=== PATIENT | male | born 1935 | race Caucasian/White ===

== ENCOUNTER 2018-10-29 15:39 | Inpatient (IN) | payer MEDICARE, OTHER ==
[2018-10-29 16:18] VITALS: BMI 24.0
[2018-10-29] MEDS: Famotidine 20 MG TAB PO SCH (20:50)
[2018-10-29] MEDS: Carvedilol 3.125 MG TAB PO SCH (20:50)
[2018-10-29] MEDS: traMADol HCl 50 MG TAB PO PRN (20:53)
[2018-10-30 05:56] LABS: ALT (SGPT) 13 U/L (8-55); AST (SGOT) 20 U/L (5-34); Alkaline Phosphatase 92 U/L (40-150); Anion Gap 13 mmol/L (10-20); BUN (Urea Nitrogen) 33 mg/dL (8.4-25.7); Bilirubin, Total 1.1 mg/dL (0.2-1.2); Calc. Creatinine Clearance 44 mL/min (70-130); Calcium 8.9 mg/dL (7.8-10.44); Carbon Dioxide 27 mmol/L (23-31); Chloride 101 mmol/L (98-107); Estimated GFR-MDRD 42; Globulin 4.6 g/dL (2.4-3.5); Glucose 86 mg/dL (83-110); Potassium 4.6 mmol/L (3.5-5.1); Protein, Total 7.6 g/dL (5.8-8.1); Sodium 136 mmol/L (136-145)
[2018-10-30 06:01] LABS: Band 6 % (5-11); Hemoglobin 8.4 g/dL (14.0-18.0); Lymphocytes 39 % (21-51); MDiff Complete? YES; Mean Corpuscular HGB CONC 32.1 g/dL (32.0-36.0); Mean Corpuscular Hemoglobin 26.3 pg (27.0-31.0); Mean Platelet Volume 7.8 fL (7.4-10.4); Monocytes 6 % (0-10); Neutrophil 49 % (42-75); Platelet Count 99 thou/uL (130-400); Platelet Morphology Comment Appears Decreased; RBC Morphology Normal; Red Blood Cell (RBC) Count 3.18 mill/uL (4.70-6.10); White Blood Cell (WBC) Count 4.5 thou/uL (4.8-10.8)
[2018-10-30] MEDS: Furosemide 20 MG TAB PO SCH (08:02)
[2018-10-30] MEDS: Lisinopril 5 MG TAB PO SCH (08:02)
[2018-10-30] MEDS: Carvedilol 3.125 MG TAB PO SCH ×2 (08:03→20:31)
[2018-10-30] MEDS ORDERED: Enoxaparin Sodium 40 MG/0.4 ML SYRINGE SC SCH (09:00)
[2018-10-30] MEDS: Acetaminophen 325 MG TAB PO PRN ×2 (09:42→20:31)
[2018-10-30] MEDS: traMADol HCl 50 MG TAB PO PRN (09:42)
[2018-10-30] MEDS: Famotidine 20 MG TAB PO SCH (20:31)
--- NOTE | 2018-10-31 03:17 | HP ---
HISTORY OF PRESENT ILLNESS: The patient is an unfortunate 83-year-old white male with a long history of severe peripheral edema, deep venous insufficiency with recurrent ulcers in both legs, which has not responded to conservative treatment. He has been treated with oral antibiotics and wound care, but has had increasing pain, and has been wheelchair bound for the last year prior to this. He was therefore admitted to [facility] for wound care, was found to not have significant infection, but was wrapped and leg wounds appeared to be healing slowly poorly. He was admitted to [facility] for continued PT. PAST SURGICAL HISTORY: Remarkable for small bowel obstruction with surgery in February 2018, cholecystectomy, right hip replacement. PAST MEDICAL HISTORY: Positive for gout, depression, mild hearing loss, chronic kidney disease, stage 3. MEDICATIONS: At present include, 1. Carvedilol 3.125 twice daily. 2. Furosemide 20 nightly. 3. Lisinopril 2.5 mg daily. 4. Tramadol as needed for pain. ALLERGIES: HE IS ALLERGIC TO CIPROFLOXACIN, AZACTAM, BENADRYL, AND ZOSYN. SOCIAL HISTORY: He lives with his . He is a nonsmoker, nondrinker. He is a DNR. REVIEW OF SYSTEMS: HEENT: He denies any headaches, dizziness, change in vision or hearing, hoarseness, or dysphagia. PULMONARY: He denies cough, sputum production, pneumonia, asthma, or tuberculosis. CARDIOVASCULAR: He denies chest pain, orthopnea, paroxysmal nocturnal dyspnea, or edema. GASTROINTESTINAL: He denies nausea, vomiting, diarrhea, constipation, or abdominal pain. GENITOURINARY: He denies dysuria, hematuria, or nocturia. PHYSICAL EXAMINATION: GENERAL: The patient is an elderly white male, lying in bed, in no acute distress. Oriented x3 and cooperative. VITAL SIGNS: Showed him to have temperature 96.8, pulse 58, respirations 20, O2 sats 92% on room air, blood pressure 131/60. HEENT: Pupils are equal, round, and reactive to light and accommodation. Sclerae anicteric. Conjunctivae pale. Oral mucous membranes well hydrated. NECK: Supple. There are no nodes or masses. JVP is not elevated. LUNGS: Clear. CARDIAC: Showed regular rhythm. No gallops or murmurs. ABDOMEN: Soft and nontender with no masses or organomegaly. There is a large ventral hernia, easily reduced. SKIN: Extremities show 2+ edema with chronic ulcerations on both legs, measuring 6 x 10 cm, but are wrapped right now. Also has bilateral ulcers, decubitus to the buttock, stage III, minimal drainage. NEUROLOGIC: Cranial nerves 2 through 12 are intact. Deep tendon reflex 2+ and equal. Absent Babinski. LABORATORY DATA: White count 4500, hematocrit 26. Sodium is 136, potassium 4.6, chloride 101, bicarb 27, BUN 33, creatinine 1.57, albumin 3.0, globulin 4.6. ASSESSMENT: An elderly white male with a history of chronic peripheral edema and deep venous insufficiency, has been bedridden in chair, ridden for a year and has developed bilateral decubitus of the buttocks plus also deep venous insufficiency ulcers of both legs and been no ongoing infection, but he has been unable to ambulate and therefore admitted to [facility] for PT, OT and wound care. He will be monitored closely for signs of sepsis or infection. He will have a dietary consult, nutritional consult. He will have DVT and stress ulcer prophylaxis. He also will be treated for his hypertension with carvedilol, furosemide and lisinopril. He will have a BNP done to evaluate for any lighten congestive heart failure. Job ID: [id number]
[2018-10-31] MEDS: Lisinopril 5 MG TAB PO SCH (08:26)
[2018-10-31] MEDS: Furosemide 20 MG TAB PO SCH (08:26)
[2018-10-31] MEDS: Carvedilol 3.125 MG TAB PO SCH (08:30)
[2018-10-31] MEDS: traMADol HCl 50 MG TAB PO PRN (09:12)
--- NOTE | 2018-10-31 19:27 | PRG ---
DATE OF SERVICE: 10/31/2018 SUBJECTIVE: The patient feels well, lying in bed. Awaiting therapy. Has had his breakfast this morning. Slept well through the night. OBJECTIVE: VITAL SIGNS: Shows his pulse is 49, blood pressure 137/60, O2 saturations 98% on room air. LUNGS: Clear. CARDIAC: Regular rhythm. ABDOMEN: Soft and nontender. ASSESSMENT: 1. Persistent peripheral edema, poorly healing ulcers, treat with compression bandage and wound care. 2. Hypertension, apparently on carvedilol and lisinopril, but with significant bradycardia, so we will discontinue carvedilol and monitor response. 3. Severe deconditioning and we will start on physical therapy. Job ID: [id number]
[2018-10-31] MEDS: Famotidine 20 MG TAB PO SCH (21:33)
[2018-11-01 05:54] LABS: Anion Gap 14 mmol/L (10-20); BUN (Urea Nitrogen) 42 mg/dL (8.4-25.7); Calc. Creatinine Clearance 44 mL/min (70-130); Calcium 8.9 mg/dL (7.8-10.44); Carbon Dioxide 25 mmol/L (23-31); Chloride 102 mmol/L (98-107); Estimated GFR-MDRD 42; Glucose 88 mg/dL (83-110); Potassium 4.5 mmol/L (3.5-5.1); Sodium 136 mmol/L (136-145)
[2018-11-01] MEDS: Lisinopril 5 MG TAB PO SCH (08:37)
[2018-11-01] MEDS: Furosemide 20 MG TAB PO SCH (08:38)
[2018-11-01] MEDS: Acetaminophen 325 MG TAB PO PRN (09:29)
[2018-11-01] MEDS: traMADol HCl 50 MG TAB PO PRN (09:29)
--- NOTE | 2018-11-01 21:09 | PRG ---
DATE OF SERVICE: 11/01/2018 SUBJECTIVE: The patient feels well, lying in bed. States he cooperated with therapy and his legs are feeling better. He is having no shortness of breath or chest pain. Physical Therapy reports state the patient care of his bilateral stasis ulcers with no complications and was unable to stand or walk and was just attempting to get up with therapy. ASSESSMENT: 1. Bilateral stasis ulcer with chronic deep venous insufficiency. 2. Severe deconditioning, inability to stand or walk. 3. Hypertension, controlled to goal. 4. Resolved infection of stage II decubitus. PLAN: 1. Continue PT/OT and wound care. 2. Continue to stress oral intake and nutrition. 3. Continue to monitor vital signs closely with therapy. 4. Continue stress ulcer prophylaxis. Job ID: [id number]
[2018-11-01] MEDS: Famotidine 20 MG TAB PO SCH (21:11)
[2018-11-02] MEDS: Furosemide 20 MG TAB PO SCH (08:57)
[2018-11-02] MEDS: Acetaminophen 325 MG TAB PO PRN ×2 (08:57→20:07)
[2018-11-02] MEDS: Lisinopril 5 MG TAB PO SCH (08:57)
[2018-11-02] MEDS: Famotidine 20 MG TAB PO SCH (20:07)
[2018-11-03] MEDS: Lisinopril 5 MG TAB PO SCH (08:27)
[2018-11-03] MEDS: traMADol HCl 50 MG TAB PO PRN (08:28)
[2018-11-03] MEDS: Acetaminophen 325 MG TAB PO PRN ×2 (08:28→20:45)
[2018-11-03] MEDS: Furosemide 20 MG TAB PO SCH (08:28)
--- NOTE | 2018-11-03 18:40 | PRG ---
DATE OF SERVICE: 11/02/2018 SUBJECTIVE: The patient feels well. No complaints. He states he is improving with therapy, although OT states he still needs quite a bit of assistance. PT is evaluating and treating his wounds on his legs and ischium. Dressing being changed daily. The patient appears to be improving as working with therapy and getting stronger. OBJECTIVE: VITAL SIGNS: Show temperature 98.3, pulse 62, respirations 18, O2 sat is 98% on room air, and blood pressure 116/56. EXTREMITIES: Both legs are bandages, but show significant superficial ulcers of both legs as well as sacrum. LUNGS: Clear. CARDIAC: Regular rate and rhythm. ABDOMEN: Soft, nontender. LABORATORY DATA: BNP is 276. Creatinine stable to 1.58. White count normal at 4500. ASSESSMENT: 1. Resolving or at least stable venous ulcers of both legs. It appeared to be dry and clean and noninfected. 2. Decubitus ulcer of sacrum, appeared to be stage II. 3. Severe deconditioning, improving with therapy and is cooperating. 4. Hypertension, controlled to goal. 5. Severe deconditioning with inability to maintain ADLs. 6. History of small-bowel obstruction in the distant past with severe weakness. PLAN: 1. Continue PT and OT as the patient is unable to maintain ADLs. 2. Continue wound care. 3. Continue to stress hygiene and oral caloric intake. 4. Continue blood pressure control. We will monitor closely. 5. Continue stress ulcer prophylaxis. Job ID: [id number]
[2018-11-03] MEDS: Famotidine 20 MG TAB PO SCH (20:45)
--- NOTE | 2018-11-04 07:49 | PRG ---
DATE OF SERVICE: 11/03/2018 SUBJECTIVE: The patient lying in bed, feels well, cheerful with no complaints, stating he feels he is getting better and improving with therapy. OBJECTIVE: VITAL SIGNS: Shows his blood pressure is 126/60, temperature is 97, pulse of 56, respirations 18, O2 sats 99% on room air. Afebrile. LUNGS: Clear. CARDIAC: Shows regular rhythm. ABDOMEN: Soft and nontender. EXTREMITIES: Legs are wrapped. Minimal tenderness. ASSESSMENT: 1. Slowly improving venous ulcers of both legs. No evidence of infection. 2. Stage II decubitus of sacrum, stable. 3. Deconditioning, working with therapy and we will discuss therapy tomorrow, improvement. 4. Hypertension, controlled to goal. 5. History of small bowel obstruction, resolved. PLAN: 1. Continue PT and OT. 2. Continue wound care. 3. Monitor vital signs with therapy. 4. Continue stress ulcer prophylaxis. 5. Continue to stress adequate oral caloric intake. Job ID: [id number]
[2018-11-04] MEDS: Lisinopril 5 MG TAB PO SCH (08:26)
[2018-11-04] MEDS: Furosemide 20 MG TAB PO SCH (08:26)
--- NOTE | 2018-11-04 09:20 | PRG ---
DATE OF SERVICE: 11/04/2018 SUBJECTIVE: The patient feels well lying in the bed, has been cooperating with therapy, and has been improving somewhat. His legs are not hurting him and are bandaged. OBJECTIVE: VITAL SIGNS: Shows his blood pressure is 135/62, temperature is 97, pulse 76, respirations 20, and O2 sats 100% on room air. LUNGS: Clear. CARDIAC: Examination showed regular rhythm. ABDOMEN: Soft and nontender. ASSESSMENT: 1. Resolving bilateral venous ulcers. We will discuss with therapy. 2. Improving deconditioning. Again, we will discuss with PT. 3. Hypertension, controlled to goal. PLAN: 1. Continue PT, OT. 2. Continue wound care. 3. Continue to monitor vital signs. 4. Continue stress ulcer prophylaxis. 5. Discussed with wound care and PT. Job ID: [id number]
[2018-11-04] MEDS ORDERED: Sodium Chloride 0.9% 10 ML ONE (14:42)
[2018-11-04] MEDS: traMADol HCl 50 MG TAB PO PRN ×2 (14:50→20:39)
[2018-11-04] MEDS: Acetaminophen 325 MG TAB PO PRN (14:51)
[2018-11-04] MEDS: Famotidine 20 MG TAB PO SCH (20:39)
[2018-11-05] MEDS: Lisinopril 5 MG TAB PO SCH (08:53)
[2018-11-05] MEDS: Furosemide 20 MG TAB PO SCH (08:53)
[2018-11-05] MEDS: traMADol HCl 50 MG TAB PO PRN (20:52)
[2018-11-05] MEDS: Famotidine 20 MG TAB PO SCH (20:53)
[2018-11-06] MEDS: Lisinopril 5 MG TAB PO SCH (09:08)
[2018-11-06] MEDS: Furosemide 20 MG TAB PO SCH (09:08)
[2018-11-06] MEDS: Famotidine 20 MG TAB PO SCH (20:33)
[2018-11-06] MEDS: traMADol HCl 50 MG TAB PO PRN (20:33)
--- NOTE | 2018-11-06 21:34 | PRG ---
DATE OF SERVICE: 11/06/2018 SUBJECTIVE: The patient feels well, lying in the bed, resting, ready for more therapy tomorrow. OBJECTIVE: LUNGS: Clear. CARDIAC: Showed regular rhythm. ABDOMEN: Soft and nontender. EXTREMITIES: Legs are bandaged with minimal tenderness. VITAL SIGNS: Temperature is 98.5, pulse 60, respirations 16, O2 saturations 97% on room air. ASSESSMENT: 1. Bilateral venous ulcers. 2. Severe deconditioning. 3. Mild dementia. 4. Stable hypertension. PLAN: 1. Continue PT/OT. 2. Continue wound care. 3. I will discuss therapies tomorrow. 4. Continue stress ulcer prophylaxis. Job ID: [id number]
--- NOTE | 2018-11-06 21:39 | PRG ---
DATE OF SERVICE: 11/05/2018 SUBJECTIVE: The patient feels well. No complaints. He states he is working well with therapy but is rested today and feels he is getting stronger. OBJECTIVE: VITAL SIGNS: Shows temperature 98.6, pulse 66, respiration 19, O2 sats 99% on room air, blood pressure 125/58. LUNGS: Clear. CARDIAC: Shows regular rhythm. ABDOMEN: Soft and nontender. SKIN: Extremities show bandaged legs. ASSESSMENT: 1. Resolving bilateral venous ulcers. 2. Improving deconditioning. 3. Hypertension controlled to goal. 4. Mild dementia. PLAN: 1. Continue PT/OT. 2. Continue wound care. 3. Discussed with therapist. 4. Continue stress ulcer and DVT prophylaxis. Job ID: [id number]
[2018-11-07] MEDS: Furosemide 20 MG TAB PO SCH (08:23)
[2018-11-07] MEDS: Lisinopril 5 MG TAB PO SCH (08:23)
[2018-11-07] MEDS ORDERED: Nitroglycerin 0.4 MG TAB (25 Tab Bottle) ONE (12:01)
[2018-11-07] MEDS ORDERED: Nitroglycerin 0.4 MG TAB (25 Tab Bottle) SL SCH (13:00)
[2018-11-07 13:16] LABS: Troponin I Less than 0.010 ng/mL (< 0.028)
--- NOTE | 2018-11-07 14:42 | RAD ---
Frontal radiograph chest: 11/07/2018 COMPARISON: 12/17/2016 HISTORY: Chest pain FINDINGS: There is mild increased linear interstitial density and pulmonary hyperinflation. Probable granulomata noted within the right lung. Cardiac silhouette is mildly prominent. No pneumothorax, lobar consolidation, or alveolar edema. IMPRESSION: Pulmonary vascular congestion and perihilar interstitial prominence. This may signify mil d interstitial edema in the proper clinical setting. No focal consolidation or alveolar edema.
[2018-11-07] MEDS: Famotidine 20 MG TAB PO SCH (21:00)
--- NOTE | 2018-11-08 06:23 | PRG ---
DATE OF SERVICE: 11/07/2018 SUBJECTIVE: The patient feels well now. Did have an episode of chest pain while doing therapy today, although he appeared to be in no respiratory distress and pain was relieved with 1 nitroglycerin. OBJECTIVE: Chest x-ray showed only mild pulmonary congestion. EKG only showed normal sinus rhythm with incomplete right bundle branch block and troponin was normal. Lungs are clear. Cardiac examination is regular rhythm. Abdomen was soft and nontender. SUMMARY: An 83-year-old white male with severe deconditioning, peripheral edema, but no history of significant decompensation of congestive heart failure and well-controlled hypertension, who has been cooperating with therapy, has been having improvement in his wounds, but today had an episode of chest pain, not associated with EKG, chest x-ray and laboratory findings and resolved with 1 nitroglycerin. He has had no further symptoms since that time. He is resting in his room at this time. OBJECTIVE: VITAL SIGNS: Shows his blood pressure is 120/57, temperature is 98, pulse 77, respirations 20, O2 sats 97% on room air. LUNGS: Clear. CARDIAC: Showed regular rhythm. ABDOMEN: Soft and nontender. ASSESSMENT: 1. Hypertension, well controlled. 2. Mild congestive heart failure, compensated. 3. Significant peripheral edema, improving greatly. 4. Venous ulcers, improving greatly with wound care. 5. New onset of chest pain, unknown etiology. We will monitor closely with conservative treatment. Job ID: [id number]
[2018-11-08] MEDS: Lisinopril 5 MG TAB PO SCH (09:08)
[2018-11-08] MEDS: Furosemide 20 MG TAB PO SCH (09:10)
[2018-11-08] MEDS: Famotidine 20 MG TAB PO SCH (20:39)
--- NOTE | 2018-11-09 08:30 | PRG ---
DATE OF SERVICE: 11/08/2018 SUBJECTIVE: chest pain which he has never had previously yesterday, that resolved after being given nitroglycerin. He has not had any further chest pain. He has been working with therapy today and states that his legs are getting much better and in fact he is ecstatic about how much they have improved. He is working with therapy. OBJECTIVE: VITAL SIGNS: Blood pressure is 117/59, temperature is 97.5, pulse is 73, respirations 18, O2 saturations 98% on room air. LUNGS: Clear. CARDIAC: Regular rhythm. ABDOMEN: Soft and nontender. EXTREMITIES: . ASSESSMENT: 1. Resolving venous ulcers. 2. Stable lymphedema. 3. New-onset of chest pain consistent with possible . PLAN: 1. Start Imdur 30 mg daily as the patient did have some response to nitroglycerin. 2. Continue PT, OT, and wound care. 3. Continue blood pressure control. Job ID: [id number]
[2018-11-09] MEDS: Furosemide 20 MG TAB PO SCH (08:34)
[2018-11-09] MEDS: Lisinopril 5 MG TAB PO SCH (08:34)
[2018-11-09] MEDS: Isosorbide Mononitrate (ER) 30 MG TAB PO SCH (08:34)
[2018-11-09] MEDS: Famotidine 20 MG TAB PO SCH (20:44)
[2018-11-10] MEDS: traMADol HCl 50 MG TAB PO PRN (08:51)
[2018-11-10] MEDS: Acetaminophen 325 MG TAB PO PRN (08:51)
[2018-11-10] MEDS: Lisinopril 5 MG TAB PO SCH (08:52)
[2018-11-10] MEDS: Isosorbide Mononitrate (ER) 30 MG TAB PO SCH (08:53)
[2018-11-10] MEDS: Furosemide 20 MG TAB PO SCH (08:53)
[2018-11-10] MEDS: Famotidine 20 MG TAB PO SCH (20:52)
[2018-11-11] MEDS: Isosorbide Mononitrate (ER) 30 MG TAB PO SCH (09:06)
[2018-11-11] MEDS: Furosemide 20 MG TAB PO SCH (09:06)
[2018-11-11] MEDS: Lisinopril 5 MG TAB PO SCH (09:06)
[2018-11-11] MEDS: Acetaminophen 325 MG TAB PO PRN (14:38)
[2018-11-11] MEDS: Famotidine 20 MG TAB PO SCH (20:37)
[2018-11-12] MEDS: Furosemide 20 MG TAB PO SCH (08:31)
[2018-11-12] MEDS: Isosorbide Mononitrate (ER) 30 MG TAB PO SCH (08:32)
[2018-11-12] MEDS: Lisinopril 5 MG TAB PO SCH (08:32)
[2018-11-12] MEDS: Famotidine 20 MG TAB PO SCH (21:00)
[2018-11-13] MEDS: Furosemide 20 MG TAB PO SCH (08:50)
[2018-11-13] MEDS: Lisinopril 5 MG TAB PO SCH (08:50)
[2018-11-13] MEDS: Isosorbide Mononitrate (ER) 30 MG TAB PO SCH (08:50)
[2018-11-13] MEDS: Acetaminophen 325 MG TAB PO PRN (14:23)
[2018-11-13] MEDS: traMADol HCl 50 MG TAB PO PRN (14:23)
[2018-11-13] MEDS: Famotidine 20 MG TAB PO SCH (20:55)
[2018-11-14 05:52] LABS: Anion Gap 12 mmol/L (10-20); BUN (Urea Nitrogen) 47 mg/dL (8.4-25.7); Bilirubin, Total 0.7 mg/dL (0.2-1.2); Calc. Creatinine Clearance 47 mL/min (70-130); Calcium 9.1 mg/dL (7.8-10.44); Carbon Dioxide 26 mmol/L (23-31); Chloride 106 mmol/L (98-107); Estimated GFR-MDRD 46; Glucose 99 mg/dL (83-110); Potassium 4.4 mmol/L (3.5-5.1); Sodium 140 mmol/L (136-145)
[2018-11-14 05:53] LABS: ALT (SGPT) 13 U/L (8-55); AST (SGOT) 19 U/L (5-34); Albumin 3.1 g/dL (3.4-4.8); Alkaline Phosphatase 100 U/L (40-150); Globulin 4.3 g/dL (2.4-3.5); Protein, Total 7.4 g/dL (5.8-8.1)
[2018-11-14 05:58] LABS: Band 10 % (5-11); Eosinophils 1 % (0-10); Hemoglobin 7.7 g/dL (14.0-18.0); Lymphocytes 31 % (21-51); MDiff Complete? YES; Mean Corpuscular HGB CONC 31.8 g/dL (32.0-36.0); Mean Corpuscular Hemoglobin 26.7 pg (27.0-31.0); Mean Corpuscular Volume 84.2 fL (78.0-98.0); Monocytes 8 % (0-10); Neutrophil 50 % (42-75); Platelet Count 71 thou/uL (130-400); Platelet Morphology Comment Appears Decreased; RBC Distribution Width 16.8 % (11.5-14.5); RBC Morphology Normal; Red Blood Cell (RBC) Count 2.87 mill/uL (4.70-6.10); White Blood Cell (WBC) Count 4.4 thou/uL (4.8-10.8)
[2018-11-14] MEDS: Isosorbide Mononitrate (ER) 30 MG TAB PO SCH (08:11)
[2018-11-14] MEDS: Lisinopril 5 MG TAB PO SCH (08:11)
[2018-11-14] MEDS: Furosemide 20 MG TAB PO SCH (08:11)
--- NOTE | 2018-11-14 15:13 | PRG ---
DATE OF SERVICE: 11/09/2018 SUBJECTIVE: The patient feels well. States his legs are feeling much better. He is getting stronger, improving daily. OBJECTIVE: VITAL SIGNS: Show his blood pressure is 111/53, temperature 97, pulse 72, respirations 20, and O2 saturation is 99% on room air. LUNGS: Clear. CARDIAC: Showed regular rhythm. ABDOMEN: Soft and nontender. EXTREMITIES: Left leg is bandaged greatly improving The patient did walk with physical therapy today wheelchair. ASSESSMENT: 1. Resolving lymphedema and venous ulcer with wound care. 2. Improving deconditioning. Improving with PT and OT. 3. No present chest pain, unknown etiology, on treatment for angina. 4. Hypertension, controlled to goal. PLAN: 1. Continue lisinopril. 2. Continue Imdur. 3. Continue wound care. 4. Continue PT and OT. Job ID: [id number]
--- NOTE | 2018-11-14 15:18 | PRG ---
DATE OF SERVICE: 11/10/2018 SUBJECTIVE: Patient feels well. No complaints. States he is feeling much better, lying in the bed. He has been cooperating with therapy, but is feeling very weak. He states, however, that the legs have never felt like OBJECTIVE: VITAL SIGNS: Temperature 97.6, pulse 65, respirations 18, O2 sats 99% on room air, blood pressure is 138/60. LUNGS: Clear. CARDIAC: Regular rate and rhythm. ABDOMEN: Soft, nontender. SKIN/EXTREMITIES: No edema, clubbing, or cyanosis ASSESSMENT: 1. Resolving edema and venous ulcers. 2. Deconditioning. 3. Stable chronic kidney disease, stage 3. 4. No further chest pain, atypical, possibly . PLAN: 1. Continue PT, OT. 2. Continue wound care. 3. Continue to monitor vital signs. 4. Repeat labs in the morning. Job ID: [id number]
--- NOTE | 2018-11-14 20:01 | PRG ---
DATE OF SERVICE: 11/11/2018 SUBJECTIVE: The patient feels well. No complaints. He has been walking with therapy. Feels his legs are getting much better and he is getting stronger. OBJECTIVE: VITAL SIGNS: Shows his blood pressure is 133/61, temperature is 97, pulse 64, respirations 18, and O2 sats 98% on room air. LUNGS: Clear. CARDIAC: Showed regular rhythm. No gallops or murmurs. ABDOMEN: Soft and nontender. EXTREMITIES: Legs are bandaged. ASSESSMENT: 1. Improving lymphedema and venous ulcers. 2. Improving deconditioning. 3. Stable chronic kidney disease, stage 3. 4. Episode of atypical chest pain, possibly angina, resolved on no further treatment. Job ID: [id number]
--- NOTE | 2018-11-14 20:06 | PRG ---
DATE OF SERVICE: 11/12/2018 SUBJECTIVE: The patient resting in bed with no complaints. No therapy today. OBJECTIVE: VITAL SIGNS: Show his temperature is 98, pulse 64, respirations 18, O2 sats 98% on room air, and blood pressure 143/64. LUNGS: Clear. CARDIAC: Showed regular rhythm. ABDOMEN: Soft and nontender. SKIN/EXTREMITIES: Showed legs are wrapped. ASSESSMENT: 1. Resolving venous ulcers. 2. Improving deconditioning, awaiting therapy. 3. No further chest pain, possibly atypical angina on medication. 4. Stable chronic kidney disease, stage 3. PLAN: 1. Continue PT/OT. 2. Continue wound care. 3. Continue gentle diuresis with furosemide 20 mg daily. Job ID: [id number]
--- NOTE | 2018-11-14 20:10 | PRG ---
DATE OF SERVICE: 11/13/2018 SUBJECTIVE: The patient resting in bed. No complaints of chest pain or shortness of breath. He has been eating well. OBJECTIVE: VITAL SIGNS: Show blood pressure is 136/62, temperature is 98, pulse 65, respirations 18, and O2 sats 97% on room air. LUNGS: Clear. CARDIAC: Showed regular rhythm. ABDOMEN: Soft and nontender. SKIN/EXTREMITIES: Bandaged. ASSESSMENT: 1. Resolving venous ulcer. 2. Improving lymphedema. 3. Stable congestive heart failure, on gentle diuresis. 4. Atypical chest pain with no recurrence, possibly angina. 5. Deconditioning improving slightly with PT/OT. Job ID: [id number]
[2018-11-14] MEDS: Famotidine 20 MG TAB PO SCH (20:54)
--- NOTE | 2018-11-14 21:00 | PRG ---
DATE OF SERVICE: 11/14/2018 SUBJECTIVE: The patient feels well lying in the bed. He states he is transferring to wheelchair without any difficulty, was transferring to the chair without difficulty. He is having healing of the ulcer on his right leg. He has no pain. No shortness of breath or chest pain. OBJECTIVE: VITAL SIGNS: Temperature 98.1, pulse 65, respirations 18, O2 sats 97% on room air, and blood pressure 136/62. LABORATORY DATA: White count of 4400, hematocrit 24, and hemoglobin 7.7. Sodium 140, potassium 4.4, chloride 106, bicarb 12, BUN 47, creatinine 1.47, GFR 46. Troponin less than 0.010. BNP is down to 276 from previous 370. ASSESSMENT: 1. Resolving venous ulcer with wound care, compression dressing. 2. Improving deconditioning, able to transfer and ambulate to wheelchair. 3. Congestive heart failure, appears to be compensated. 4. Chest pain of unknown etiology, atypical, possibly angina, controlled with isosorbide. PLAN: 1. Continue PT/OT. 2. Continue wound care. 3. Discuss discharge planning with Physical Therapy. 4. Continue to monitor for increased dyspnea or chest pain. Job ID: [id number]
[2018-11-15] MEDS: Lisinopril 5 MG TAB PO SCH (08:57)
[2018-11-15] MEDS: Isosorbide Mononitrate (ER) 30 MG TAB PO SCH (08:57)
[2018-11-15] MEDS: Furosemide 20 MG TAB PO SCH (08:58)
[2018-11-15] MEDS: Famotidine 20 MG TAB PO SCH (20:54)
--- NOTE | 2018-11-16 06:51 | PRG ---
DATE OF SERVICE: 11/15/2018 SUBJECTIVE: The patient feels well, lying in bed, somewhat upset with nursing as they did not help him with his supper. He has been on total assist to get to the wheelchair, but is ambulating with a wheelchair and feels he is getting stronger. He is very pleased with care of his wounds as his legs are best they have been in months. OBJECTIVE: VITAL SIGNS: Shows temperature 97.1, pulse 67, respirations 18, O2 sats 98% on room air, blood pressure 127/5. LUNGS: Clear. CARDIAC: Examination shows regular rhythm. ABDOMEN: Soft, nontender. SKIN: Extremities show healing venous ulcers and 1 to 2+ edema. LABORATORY DATA: Platelet count is down to 71,000, hematocrit is 24, hemoglobin 7.7, creatinine 1.47, BUN 47. Sodium 140, potassium 4.4, chloride 106, bicarb 26. ASSESSMENT: 1. Slowly improving deconditioning, but still unable to maintain activities of daily living. 2. Resolving venous ulcer with compression wraps and wound care. 3. No further chest pain, on isosorbide, unknown etiology. 4. Compensated congestive heart failure. 5. New onset of thrombocytopenia of unknown etiology and we will repeat CBC tomorrow. PLAN: 1. Continue PT/OT. 2. Continue wound care. 3. Repeat CBC in the a.m. as well as [facility]. Job ID: [id number]
[2018-11-16 07:05] LABS: #Lymphocytes 0.9 thou/uL (1.20-3.40); #Monocytes 0.4 thou/uL (0.11-0.59); #Neutrophils 1.7 thou/uL (1.40-6.50); %Basophils 1.1 % (0.0-1.0); %Eosinophils 0.8 % (0.0-10.0); %Lymphocytes 29.4 % (21.0-51.0); %Monocytes 12.8 % (0.0-10.0); %Neutrophils 55.9 % (42.0-75.0); Hemoglobin 7.9 g/dL (14.0-18.0); Mean Corpuscular HGB CONC 31.5 g/dL (32.0-36.0); Mean Corpuscular Hemoglobin 26.3 pg (27.0-31.0); Mean Corpuscular Volume 83.5 fL (78.0-98.0); Mean Platelet Volume 6.6 fL (7.4-10.4); Platelet Count 66 thou/uL (130-400); RBC Distribution Width 16.3 % (11.5-14.5); Red Blood Cell (RBC) Count 3.02 mill/uL (4.70-6.10); White Blood Cell (WBC) Count 3.1 thou/uL (4.8-10.8)
[2018-11-16 07:06] LABS: Anisocytosis SLIGHT = 6-15 cells (100X) (0-5/hpf); Hypochromia SLIGHT = 6-15 cells (100X) (0-5/hpf); MDiff Complete? YES; Platelet Morphology Comment Appears Decreased
[2018-11-16 07:08] LABS: Anion Gap 12 mmol/L (10-20); BUN (Urea Nitrogen) 43 mg/dL (8.4-25.7); Calc. Creatinine Clearance 51 mL/min (70-130); Calcium 9.1 mg/dL (7.8-10.44); Carbon Dioxide 25 mmol/L (23-31); Chloride 105 mmol/L (98-107); Estimated GFR-MDRD 50; Glucose 87 mg/dL (83-110); Potassium 4.4 mmol/L (3.5-5.1); Sodium 138 mmol/L (136-145)
[2018-11-16] MEDS: Isosorbide Mononitrate (ER) 30 MG TAB PO SCH (08:16)
[2018-11-16] MEDS: Furosemide 20 MG TAB PO SCH (08:16)
[2018-11-16] MEDS: Lisinopril 5 MG TAB PO SCH (08:16)
[2018-11-16] MEDS: Famotidine 20 MG TAB PO SCH (21:26)
[2018-11-17] MEDS: Furosemide 20 MG TAB PO SCH (09:09)
[2018-11-17] MEDS: Isosorbide Mononitrate (ER) 30 MG TAB PO SCH (09:09)
[2018-11-17] MEDS: Lisinopril 5 MG TAB PO SCH (09:09)
[2018-11-17] MEDS: Famotidine 20 MG TAB PO SCH (21:03)
--- NOTE | 2018-11-18 07:20 | PRG ---
DATE OF SERVICE: 11/17/2018 SUBJECTIVE: The patient feels well, lying in bed. He states that he has been walking with therapy, but apparently therapy states he only takes a few steps because of pain in his hip. He is denying any shortness of breath or chest pain. He is having good appetite and is eating well. Labs show his sodium was 138 yesterday, potassium 4.4, chloride 105, bicarb 25, BUN 43, and creatinine 1.37. BNP is 271, which is stable. White count is 3100, hematocrit 25, hemoglobin 7.9, and platelet count down to 66,000. OBJECTIVE: LUNGS: Clear. CARDIAC: Showed regular rhythm. ABDOMEN: Soft and nontender. SKIN AND EXTREMITIES: Wrapped with bandages, but wound photos show healing stage II venous ulcer. ASSESSMENT: 1. Stable congestive heart failure, mild systolic with ejection fraction of 40% to 45%, compensated at this time. 2. Stable chronic kidney disease, stage 3. Ejection fraction of 50%. 3. 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 We will monitor as it had been stable during last hospitalization. 4. Severe deconditioning, improving minimally as the patient is refusing to cooperate with therapy secondary to pain. 5. 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 PLAN: 1. Continue PT/OT. 2. Discussed with family and the patient about anemia. 3. Continue wound care. 4. Continue to monitor for exacerbation of congestive heart failure. Job ID: [id number]
--- NOTE | 2018-11-18 07:27 | PRG ---
DATE OF SERVICE: 11/16/2018 SUBJECTIVE: The patient feels well, lying in the bed, states he feels he is getting much stronger, and is working with therapy, and states that his wounds are improving. Denies any chest pain or shortness of breath. OBJECTIVE: VITAL SIGNS: Temperature is 97.1, pulse 72, respirations 18, O2 sats 97% on room air, blood pressure is 122/58. LUNGS: Clear. CARDIAC: Regular rhythms. SKIN: Extremities shows both legs with markedly improved edema with healing venous ulcer of right leg. Physical therapy states that the patient is not walking more than few steps because of hip pain, but he is transferring with assistance. ASSESSMENT: 1. Resolving venous ulcers with compression dressing and wound care. 2. Stable congestive heart failure. 3. Significant deconditioning with the patient still refusing to walk. 4. No further chest pain of unknown etiology, possibly angina, on nitrates. PLAN: 1. Continue to stress PT/OT. 2. Continue to stress wound care. 3. Continue to monitor for recurrent congestive heart failure. 4. Discussed discharge planning with the patient. Job ID: [id number]
[2018-11-18] MEDS: Lisinopril 5 MG TAB PO SCH (08:39)
[2018-11-18] MEDS: Furosemide 20 MG TAB PO SCH (08:39)
[2018-11-18] MEDS: Isosorbide Mononitrate (ER) 30 MG TAB PO SCH (08:39)
[2018-11-18] MEDS: Famotidine 20 MG TAB PO SCH (20:53)
[2018-11-19] MEDS: Furosemide 20 MG TAB PO SCH (09:39)
[2018-11-19] MEDS: Isosorbide Mononitrate (ER) 30 MG TAB PO SCH (09:39)
[2018-11-19] MEDS: Lisinopril 5 MG TAB PO SCH (09:43)
[2018-11-19] MEDS: Famotidine 20 MG TAB PO SCH (20:55)
[2018-11-20] MEDS: Lisinopril 5 MG TAB PO SCH (09:01)
[2018-11-20] MEDS: Furosemide 20 MG TAB PO SCH (09:02)
[2018-11-20] MEDS: Isosorbide Mononitrate (ER) 30 MG TAB PO SCH (09:02)
[2018-11-20] MEDS: Famotidine 20 MG TAB PO SCH (21:05)
--- NOTE | 2018-11-20 21:27 | PRG ---
DATE OF SERVICE: 11/20/2018 SUBJECTIVE: The patient feels well, lying in the bed, but has pain on any movement of his left hip. Having no pain or swelling in his legs. No shortness of breath or chest pain. OBJECTIVE: VITAL SIGNS: Show temperature is 97.5, pulse 73, respirations 20, O2 sats 98% on room air, blood pressure is 128/62. SKIN: Both legs are wrapped, but there is decrease in edema and healing venous ulcer. MUSCULOSKELETAL: Left hip is tender on any movement. LUNGS: Clear. ABDOMEN: Soft and nontender. CARDIAC: Regular rhythm. ASSESSMENT: 1. Resolving venous ulcers. 2. Resolving venous peripheral edema and possible lymphedema. 3. Persistent severe pain in the left hip with severe arthritis. 4. Compensated congestive heart failure with ejection fraction of 40%. 5. Chronic kidney disease, stage 3. PLAN: 1. Continue PT/OT. 2. Discussed surgery with the patient and family. We feel most likely not a candidate and the patient is not desiring and therefore may not ever walk much because of severe arthritis in the left hip. 3. Continue wound care of right leg. 4. Continue to monitor for exacerbation of CHF. Job ID: [id number]
--- NOTE | 2018-11-21 07:45 | PRG ---
DATE OF SERVICE: 11/19/2018 SUBJECTIVE: The patient feels well, lying in the bed. When asked about his walking, he states that his hip causes him severe pain on walking, and discussed possible surgical evaluation in the future if he does truly wish to ambulate to maintain ADLs. OBJECTIVE: VITAL SIGNS: Shows blood pressure is 133/60, temperature is 98.3 pulse 60, respirations 18, O2 sats 99% on room air. LUNGS: Clear. CARDIAC: Shows regular rhythm. ABDOMEN: Soft and nontender. SKIN: Extremities are bandaged, but photo shows a healing venous ulcer. ASSESSMENT: 1. Resolving venous ulcer and improving peripheral edema. 2. Stable congestive heart failure, compensated at this time. Ejection fraction of 40%. 3. Stable chronic kidney disease, stage 3. 4. Improving deconditioning. 5. 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 6. Mild pancytopenia, stable, but persistent during this hospitalization. We will monitor. PLAN: 1. Continue PT/OT. 2. Continue wound care. 3. Have the patient discuss with family about possible surgical evaluation for left total hip in the future. Job ID: [id number]
[2018-11-21] MEDS: Furosemide 20 MG TAB PO SCH (08:43)
[2018-11-21] MEDS: Isosorbide Mononitrate (ER) 30 MG TAB PO SCH (08:43)
[2018-11-21] MEDS: Lisinopril 5 MG TAB PO SCH (08:44)
[2018-11-21] MEDS: Famotidine 20 MG TAB PO SCH (20:57)
--- NOTE | 2018-11-21 21:12 | PRG ---
DATE OF SERVICE: 11/21/2018 SUBJECTIVE: The patient feels well, lying in bed. He states that his legs are looking and feeling better than they felt 10 years. He states he did walk some days, but is having significant pain in his hip, but does not want to have any hip surgery and states that he will walk with pain. OBJECTIVE: VITAL SIGNS: Show his blood pressure is 122/60, temperature is 97.3, pulse 63, respirations 20, and O2 sats 98% on room air. LUNGS: Clear. CARDIAC: Showed regular rhythm. ABDOMEN: Soft and nontender. EXTREMITIES: Right leg shows some erythema, but no swelling. Slowly decreasing size of the venous ulcer. ASSESSMENT: 1. Chronic venous ulcer, slowly healing. 2. Severe degenerative joint disease of left hip limiting ambulation. 3. Systolic heart failure, compensated. 4. Chronic kidney disease stage 3, stable. PLAN: 1. Continue PT/OT. 2. Continue pain relief as needed. surgery at this time if the patient is requested. Continue to monitor exacerbation of CHF. Continue local wound care for right leg venous ulcer. Job ID: [id number]
[2018-11-22] MEDS: Isosorbide Mononitrate (ER) 30 MG TAB PO SCH (09:03)
[2018-11-22] MEDS: Furosemide 20 MG TAB PO SCH (09:03)
[2018-11-22] MEDS: Lisinopril 5 MG TAB PO SCH (09:03)
[2018-11-22] MEDS: Famotidine 20 MG TAB PO SCH (20:49)
--- NOTE | 2018-11-22 21:02 | PRG ---
DATE OF SERVICE: 11/22/2018 SUBJECTIVE: The patient feels well lying in bed. He states that he and his have decided that they want to talk to the orthopedic surgeon, Dr. Brand, about a left hip replacement as he feels he will not be able to ambulate and care for himself without this and is ready to attempt surgery if surgeon is agreeable. OBJECTIVE: VITAL SIGNS: Shows temperature is 97.1, pulse 83, respirations 20, O2 sats 97% on room air, blood pressure 113/55. LUNGS: Clear. CARDIAC: Shows regular rhythm. ABDOMEN: Soft and nontender with no masses or organomegaly. SKIN AND EXTREMITIES: Showed no edema and healing venous ulcer. ASSESSMENT: 1. Severe arthritis of the left hip, limiting ability to do activities of daily living. 2. Chronic venous ulcer, slowly healing. 3. Systolic heart failure, compensated. 4. Chronic kidney disease stage 3, stable. PLAN: 1. Obtain CBC and comprehensive metabolic panel in the a.m. 2. Consult Dr. Brand for appointment to determine feasibility of possible hip operation. 3. Continue pain relief as needed. 4. Continue to monitor congestive heart failure. Job ID: [id number]
[2018-11-23 05:17] LABS: Hemoglobin 8.1 g/dL (14.0-18.0); Mean Corpuscular HGB CONC 32.1 g/dL (32.0-36.0); Mean Corpuscular Hemoglobin 26.5 pg (27.0-31.0); Mean Corpuscular Volume 82.5 fL (78.0-98.0); Mean Platelet Volume 7.3 fL (7.4-10.4); Platelet Count 81 thou/uL (130-400); RBC Distribution Width 14.8 % (11.5-14.5); Red Blood Cell (RBC) Count 3.04 mill/uL (4.70-6.10); White Blood Cell (WBC) Count 3.4 thou/uL (4.8-10.8)
[2018-11-23 05:18] LABS: #Lymphocytes 1.3 thou/uL (1.20-3.40); #Neutrophils 1.5 thou/uL (1.40-6.50); %Eosinophils 0.6 % (0.0-10.0); %Lymphocytes 37.3 % (21.0-51.0); %Monocytes 17.6 % (0.0-10.0); %Neutrophils 43.4 % (42.0-75.0)
[2018-11-23 05:34] LABS: ALT (SGPT) 12 U/L (8-55); AST (SGOT) 16 U/L (5-34); Albumin 3.3 g/dL (3.4-4.8); Alkaline Phosphatase 87 U/L (40-150); Anion Gap 13 mmol/L (10-20); BUN (Urea Nitrogen) 78 mg/dL (8.4-25.7); Calc. Creatinine Clearance 45 mL/min (70-130); Calcium 9.6 mg/dL (7.8-10.44); Carbon Dioxide 25 mmol/L (23-31); Chloride 102 mmol/L (98-107); Estimated GFR-MDRD 43; Globulin 4.4 g/dL (2.4-3.5); Glucose 91 mg/dL (83-110); Potassium 4.3 mmol/L (3.5-5.1); Protein, Total 7.7 g/dL (5.8-8.1); Sodium 136 mmol/L (136-145)
[2018-11-23] MEDS: Isosorbide Mononitrate (ER) 30 MG TAB PO SCH (08:14)
[2018-11-23] MEDS: Lisinopril 5 MG TAB PO SCH (08:15)
[2018-11-23] MEDS: Furosemide 20 MG TAB PO SCH (08:15)
[2018-11-23] MEDS: Famotidine 20 MG TAB PO SCH (20:33)
--- NOTE | 2018-11-23 20:43 | PRG ---
DATE OF SERVICE: 11/23/2018 SUBJECTIVE: The patient feels well, awaiting appointment with his surgeon, Dr. Brand, next week in order to determine whether he is the candidate for hip surgery. He is having no symptoms at rest, but is having significant pain when any ambulation. OBJECTIVE: VITAL SIGNS: His blood pressure is 125/58, temperature 97, pulse 79, respirations 20, O2 sats 98% on room air. LUNGS: Clear. CARDIAC: Showed regular rhythm. ABDOMEN: Soft and nontender. MUSCULOSKELETAL: Left hip, painful on movement. SKIN AND EXTREMITIES: Show venous ulcers. ASSESSMENT: 1. Resolving venous ulcer. 2. Stable hypertension. 3. Severe degenerative joint disease of left hip. PLAN: 1. Continue PT/OT. 2. Continue pain relief. 3. Continue bandages and compression dressing of the left leg. 4. Await orthopedic consult next week. Job ID: [id number]
[2018-11-24] MEDS: Furosemide 20 MG TAB PO SCH (08:38)
[2018-11-24] MEDS: Isosorbide Mononitrate (ER) 30 MG TAB PO SCH (08:38)
[2018-11-24] MEDS: Lisinopril 5 MG TAB PO SCH (08:40)
[2018-11-24] MEDS: Famotidine 20 MG TAB PO SCH (21:24)
[2018-11-25] MEDS: Lisinopril 5 MG TAB PO SCH (09:38)
[2018-11-25] MEDS: Furosemide 20 MG TAB PO SCH (09:38)
[2018-11-25] MEDS: Acetaminophen 325 MG TAB PO PRN (09:38)
[2018-11-25] MEDS: Isosorbide Mononitrate (ER) 30 MG TAB PO SCH (09:38)
[2018-11-25] MEDS: Famotidine 20 MG TAB PO SCH (20:27)
[2018-11-26] MEDS: Lisinopril 5 MG TAB PO SCH (08:24)
[2018-11-26] MEDS: Isosorbide Mononitrate (ER) 30 MG TAB PO SCH (08:24)
[2018-11-26] MEDS: Furosemide 20 MG TAB PO SCH (08:24)
--- NOTE | 2018-11-26 09:27 | PRG ---
DATE OF SERVICE: 11/26/2018 SUBJECTIVE: The patient is lying in bed, very cheerful and happy with no pain in his legs or hip and is awaiting his orthopedic consultation next week. OBJECTIVE: VITAL SIGNS: Shows blood pressure is 132/63, temperature is 96, pulse 67, respirations 18, and O2 saturations 98% on room air. NECK: Shows JVP is not elevated. LUNGS: Clear. CARDIAC: Showed regular rhythm. ABDOMEN: Soft and nontender. EXTREMITIES: Legs are bandaged, but right calf shows a healing venous ulcer. ASSESSMENT: 1. Resolving venous ulcers and lymphedema. 2. Compensated congestive heart failure. 3. Severe degenerative joint disease of left hip, limiting therapy. 4. Significant deconditioning, limiting ADLs. 5. Chronic kidney disease, stage 3, stable. PLAN: 1. Continue wound care. 2. Await Orthopedic consult next week. 3. Continue PT/OT. 4. Continue to monitor for decompensation of congestive heart failure . Job ID: [id number]
--- NOTE | 2018-11-26 09:33 | PRG ---
DATE OF SERVICE: 11/24/2018 SUBJECTIVE: The patient feels well, lying in bed, resting, having no pain at rest in his hip and is having no pain in his legs. He is having no shortness of breath or chest pain. OBJECTIVE: VITAL SIGNS: Blood pressure is temperature is 96, pulse 70, respirations 20, O2 sats 96% on room air. GENERAL: The patient is attempting to cooperate with physical therapy and did walk a few steps, but has reached close to the end of his progression until his hip pain has improved either surgically or medically. ABDOMEN: Soft. LUNGS: Clear. CARDIAC: Regular rhythm. ASSESSMENT: 1. Resolving venous ulcers of both legs, which are bandaged. 2. Stable hypertension. 3. Severe degenerative joint disease of left hip. Awaiting Orthopedic consultation next week. 4. Compensated congestive heart failure. 5. Deconditioning, minimally improved, secondary to severe pain in left hip limiting therapy. PLAN: 1. Continue wound care. 2. Await Orthopedic consultation next week. 3. Continue blood pressure control and monitor for any congestive heart failure. Job ID: [id number]
--- NOTE | 2018-11-26 15:44 | PRG ---
DATE OF SERVICE: 11/26/2018 SUBJECTIVE: Mr. Ortiz is doing well. Denies any complaints. Resting comfortably. No family at bedside. OBJECTIVE: VITAL SIGNS: He is afebrile. Heart rate is 61, respirations 18, oxygen saturation 99% on room air, and blood pressure 129/63. CARDIOVASCULAR SYSTEM: S1 and S2 plus. RESPIRATORY SYSTEM: Normal vesicular breath sounds. ABDOMEN: Soft and nontender. Bowel sounds heard in all quadrants. EXTREMITIES: Without cyanosis or clubbing. Peripheral pulses are palpable. CENTRAL NERVOUS SYSTEM: Grossly nonfocal except for generalized weakness. IMPRESSION: 1. Venous stasis ulcers, resolving. 2. Osteoarthritis. 3. Chronic kidney disease stage 3. 4. History of gout. 5. Chronic diastolic congestive heart failure and deconditioning. PLAN: 1. Continue current medications. 2. Heart healthy diet. 3. DVT and stress ulcer prophylaxis. 4. Decubitus precautions. 5. Wound care. 6. Physical therapy. 7. Routine laboratory values. Job ID: [id number]
[2018-11-26] MEDS: Famotidine 20 MG TAB PO SCH (21:06)
[2018-11-27] MEDS: Isosorbide Mononitrate (ER) 30 MG TAB PO SCH (08:20)
[2018-11-27] MEDS: Furosemide 20 MG TAB PO SCH (08:20)
[2018-11-27] MEDS: Lisinopril 5 MG TAB PO SCH (08:20)
[2018-11-27] MEDS: Acetaminophen 325 MG TAB PO PRN (10:49)
--- NOTE | 2018-11-27 16:07 | PRG ---
DATE OF SERVICE: 11/27/2018 SUBJECTIVE: Mr. Ortiz is up in his wheelchair and denies any concerns. He had a good lunch. No family at bedside, discussed with nursing. OBJECTIVE: VITAL SIGNS: He is afebrile, heart rate 60, respirations 16, oxygen saturation 98% on room air, and blood pressure 123/61. CARDIOVASCULAR SYSTEM: S1 and S2 plus. RESPIRATORY SYSTEMS: Normal vesicular breath sounds. ABDOMEN: Soft and nontender. Bowel sounds heard in all quadrants. EXTREMITIES: Without cyanosis or clubbing. Peripheral pulses are palpable. CENTRAL NERVOUS SYSTEM: Awake and responsive. Generalized weakness. IMPRESSION: 1. Resolving venous stasis ulcers. 2. Osteoarthritis, stable. 3. Chronic kidney disease, stage 3. 4. History of gout. 5. Chronic diastolic congestive heart failure. 6. Improving deconditioning. PLAN: 1. Continue current medications. 2. Wound care. 3. Heart-healthy diet. 4. DVT and stress ulcer prophylaxis. 5. Decubitus precautions. 6. Continue physical therapy. 7. Routine laboratory values. 8. Dr. Eduard Boog[facility] Job ID: [id number]
[2018-11-27] MEDS: Famotidine 20 MG TAB PO SCH (20:36)
--- NOTE | 2018-11-28 08:45 | PRG ---
DATE OF SERVICE: 11/28/2018 SUBJECTIVE: The patient feels well, lying in bed. He states that he is ready for more therapy today, but also is ready to see the orthopedic surgeon because of persistent pain in his left hip. He is very pleased with the way his legs feel and his wounds are healing. OBJECTIVE: VITAL SIGNS: Shows temperature is 96.7, pulse 59, respirations 18, O2 saturations 98% on room air, and blood pressure 132/63. LUNGS: Clear. CARDIAC: Examination showed regular rhythm. ABDOMEN: Soft and nontender. SKIN: Shows healing venous ulcers. No further edema. ASSESSMENT: 1. Resolving venous ulcers, peripheral edema. 2. Severe degenerative joint disease of left hip. 3. Severe deconditioning with inability to maintain ADLs. 4. Compensated congestive heart failure. PLAN: 1. Continue PT/OT. 2. Followup orthopedic surgeon in 2 days to determine if possible to have left hip replacement. 3. Continue wound care and compression dressings of both legs. Job ID: [id number]
[2018-11-28] MEDS: Furosemide 20 MG TAB PO SCH (09:00)
[2018-11-28] MEDS: Isosorbide Mononitrate (ER) 30 MG TAB PO SCH (09:00)
[2018-11-28] MEDS: Lisinopril 5 MG TAB PO SCH (09:01)
[2018-11-28] MEDS: Famotidine 20 MG TAB PO SCH (20:36)
[2018-11-29] MEDS: Lisinopril 5 MG TAB PO SCH (09:32)
[2018-11-29] MEDS: Isosorbide Mononitrate (ER) 30 MG TAB PO SCH (09:33)
[2018-11-29] MEDS: Furosemide 20 MG TAB PO SCH (09:33)
--- NOTE | 2018-11-29 20:23 | PRG ---
DATE OF SERVICE: 11/29/2018 SUBJECTIVE: The patient lying in the bed, feels well, cooperating with therapy today, but is still having significant pain in his left hip. He is having no shortness of breath or chest pain. OBJECTIVE: VITAL SIGNS: His blood pressure is 139/63, temperature 98, pulse 61, respirations 20, and O2 sats 98% on room air. LUNGS: Clear. CARDIAC: Showed regular rhythm. ABDOMEN: Soft and nontender. SKIN/EXTREMITIES: Show healing venous ulcer with resolving edema. ASSESSMENT: 1. Resolving venous ulcers and peripheral edema. 2. Compensated congestive heart failure. 3. Severe deconditioning with inability to maintain ADLs. 4. Severe degenerative joint disease of left hip. Awaiting one with orthopedic surgeon tomorrow. PLAN: 1. Continue PT/OT. 2. Follow up orthopedic surgeon tomorrow. 3. Continue wound care, compression dressings of legs. 4. Continue to monitor for decompensation of congestive heart failure. Job ID: [id number]
[2018-11-29] MEDS: Famotidine 20 MG TAB PO SCH (21:34)
[2018-11-30] MEDS: Furosemide 20 MG TAB PO SCH (08:56)
[2018-11-30] MEDS: Lisinopril 5 MG TAB PO SCH (08:56)
[2018-11-30] MEDS: Isosorbide Mononitrate (ER) 30 MG TAB PO SCH (08:56)
--- NOTE | 2018-11-30 20:16 | PRG ---
DATE OF SERVICE: 11/30/2018 SUBJECTIVE: The patient feels well, lying in the bed. Still having pain in his left hip. Has seen the surgeon today, who states he cannot operate on his hip until his ulcers on his legs are completely healed. OBJECTIVE: SKIN: Shows ulcers are clean, dry, and healing. LUNGS: Clear. CARDIAC: Shows regular rhythm. ABDOMEN: Soft and nontender. VITAL SIGNS: Temperature is 98.5, pulse 64, respiratory rate is 20, O2 saturations 98% on room air. ASSESSMENT: 1. Resolving venous ulcers. 2. Resolved edema. 3. Severe degenerative joint disease of left hip. 4. Compensated congestive heart failure. PLAN: 1. Discuss wound care with Physical Therapy tomorrow whether the patient qualifies for further care. 2. Hold any further surgery until wound is clear according to the surgeon. 3. Discussed discharge planning with family tomorrow. Job ID: [id number]
[2018-11-30] MEDS: Famotidine 20 MG TAB PO SCH (20:36)
[2018-12-01] MEDS: Lisinopril 5 MG TAB PO SCH (09:06)
[2018-12-01] MEDS: Furosemide 20 MG TAB PO SCH (09:07)
[2018-12-01] MEDS: Isosorbide Mononitrate (ER) 30 MG TAB PO SCH (09:07)
[2018-12-01] MEDS: Famotidine 20 MG TAB PO SCH (20:38)
[2018-12-02] MEDS: Isosorbide Mononitrate (ER) 30 MG TAB PO SCH (09:26)
[2018-12-02] MEDS: Lisinopril 5 MG TAB PO SCH (09:26)
[2018-12-02] MEDS: Furosemide 20 MG TAB PO SCH (09:26)
--- NOTE | 2018-12-02 11:08 | PRG ---
DATE OF SERVICE: 12/01/2018 SUBJECTIVE: The patient feels well, lying in the bed, disappointed as he is not going to be able to have his hip surgery until his venous ulcers are completely healed. Discussed the situation with Wound Care, feels that his ulcers are healing with just conservative care and control of his edema and compression banding and can be done by home health. OBJECTIVE: VITAL SIGNS: Shows blood pressure is 131/60, temperature is 98.6, pulse 76, respirations 18, and O2 saturations 98% on room air. LUNGS: Clear. CARDIAC: Showed regular rhythm. ABDOMEN: Soft and nontender. SKIN/EXTREMITIES: Show resolved edema with healing venous ulcers. ASSESSMENT: 1. Resolving venous ulcers, stable, compensated congestive heart failure with decreased edema. 2. Severe arthritis of left hip. 3. Hypertension, controlled to goal. PLAN: Discharge tomorrow to follow up with [facility] until wounds heal and to follow up with primary care physician, Dr. Paz in 2 weeks and hopefully, Dr. Brand when wounds are heal for left hip replacement. Job ID: [id number]
--- NOTE | 2018-12-02 13:39 | DIS ---
DATE OF ADMISSION: 10/29/2018 DATE OF DISCHARGE: 12/02/2018 FINAL DIAGNOSES: 1. Severe lymphedema and venous insufficiency, greatly improved. 2. Venous ulcers, greatly improved and almost resolved. 3. Severe osteoarthritis of left hip, limiting ambulation. 4. Compensated systolic and diastolic heart failure. 5. Hypertension, controlled to goal. 6. Chronic kidney disease, stage 3, stable. 7. Pancytopenia, mild, but stable and chronic for many years. HOSPITAL COURSE: The patient is a very pleasant 83-year-old white male, who was admitted to [facility] for physical therapy and for wound care of his severe venous ulcers of both legs. He was started on compression dressings and wound care, and slowly, but surely improved. His venous ulcers and his edema improved with control of his compensated congestive heart failure. He was started on physical therapy also and did not progress well because of severe pain in left hip. Subsequent x-ray showed severe arthritis of the left hip, which is limiting his PT. He was seen by the orthopedic surgeon, Dr. Brand, who felt like he could not operate and replace the left hip until the ulcers are completely healed. Wound Care felt that the ulcers were improved enough that it could be cared for by Home Health, and the patient felt well with no shortness of breath or chest pain, and therefore, he was discharged to [facility] to continue wound care and to follow up with his PCP, Dr. Power Paz, and to hopefully have a referral back to Dr. Brand when the ulcers are healed to have the left hip operated on. PHYSICAL EXAMINATION: VITAL SIGNS: On discharge, his vital signs showed blood pressure 116/58, temperature 98.3, pulse 63, respirations 20, and O2 sats 100% on room air. LABORATORY DATA: Showed a white count 3400, hematocrit 25, hemoglobin 8, and platelet count is 81,000. Sodium 136, potassium 4.3, chloride 102, bicarb 25, BUN 78, and creatinine 1.56. BNP is 271. Liver functions normal. Job ID: [id number]
[2018-12-02 13:47] VITALS: BP 121/58; TEMP 98.2
== END 2018-12-02 12:40 | disposition home health service (06) | DRG 299 ==
LOC: NAV ACUTE 15:39
PROVIDERS: ADMIT Internal Medicine; ATTEND Internal Medicine
DX: I83.813 Varicose veins of bilateral lower extremities with pain (principal); L89.323 Pressure ulcer of left buttock, stage 3; L89.313 Pressure ulcer of right buttock, stage 3; L97.929 Non-pressure chronic ulcer of unspecified part of left lower leg with unspecified severity; L97.919 Non-pressure chronic ulcer of unspecified part of right lower leg with unspecified severity; I13.0 Hypertensive heart and chronic kidney disease with heart failure and stage 1 through stage 4 chronic kidney disease, or unspecified chronic kidney disease; D61.818 Other pancytopenia; I50.42 Chronic combined systolic (congestive) and diastolic (congestive) heart failure; Z66 Do not resuscitate; N18.3 Chronic kidney disease, stage 3 (moderate); M10.9 Gout, unspecified; F32.9 Major depressive disorder, single episode, unspecified; Z96.641 Presence of right artificial hip joint; L08.9 Local infection of the skin and subcutaneous tissue, unspecified; L89.152 Pressure ulcer of sacral region, stage 2; F03.90 Unspecified dementia, unspecified severity, without behavioral disturbance, psychotic disturbance, mood disturbance, and anxiety; I89.0 Lymphedema, not elsewhere classified; R07.89 Other chest pain; M16.0 Bilateral primary osteoarthritis of hip; D46.9 Myelodysplastic syndrome, unspecified; Z90.49 Acquired absence of other specified parts of digestive tract; Z88.0 Allergy status to penicillin; Z88.8 Allergy status to other drugs, medicaments and biological substances; Z88.1 Allergy status to other antibiotic agents; Z79.899 Other long term (current) drug therapy; I45.10 Unspecified right bundle-branch block
CPT/HCPCS: 36415; 71045; 80048; 80053; 83880; 84484; 85025; 97602

== ENCOUNTER 2019-01-25 17:35 | Outpatient (CLI) | payer MEDICARE, OTHER | END 2019-01-25 17:36 | disposition home or self-care (01) | LOC: NAV CT 17:35 | PROVIDERS: ATTEND Internal Medicine | DX: C44.42 Squamous cell carcinoma of skin of scalp and neck (principal) | CPT/HCPCS: 70450 ==

== ENCOUNTER 2019-06-27 09:48 | Emergency (ER) | payer MEDICARE, OTHER ==
[~2019-06-27 09:48] MED LIST: Iopamidol 370 76% 100 ML VIAL ONE
[2019-06-27 10:26] LABS: #Lymphocytes 0.7 thou/uL (1.20-3.40); #Monocytes 0.6 thou/uL (0.11-0.59); #Neutrophils 4.2 thou/uL (1.40-6.50); %Basophils 0.3 % (0.0-1.0); %Eosinophils 0.1 % (0.0-10.0); %Lymphocytes 13.2 % (21.0-51.0); %Monocytes 11.1 % (0.0-10.0); %Neutrophils 75.3 % (42.0-75.0); Hemoglobin 8.1 g/dL (14.0-18.0); Mean Corpuscular HGB CONC 30.9 g/dL (32.0-36.0); Mean Corpuscular Hemoglobin 23.1 pg (27.0-31.0); Mean Corpuscular Volume 74.7 fL (78.0-98.0); Mean Platelet Volume 8.3 fL (7.4-10.4); Platelet Count 90 thou/uL (130-400); RBC Distribution Width 16.7 % (11.5-14.5); Red Blood Cell (RBC) Count 3.51 mill/uL (4.70-6.10); White Blood Cell (WBC) Count 5.6 thou/uL (4.8-10.8)
[2019-06-27 10:29] LABS: Anisocytosis SLIGHT = 6-15 cells (100X) (0-5/hpf); Hypochromia SLIGHT = 6-15 cells (100X) (0-5/hpf); MDiff Complete? YES; Microcytosis SLIGHT = 6-15 cells (100X) (0-5/hpf); Ovalocytes SLIGHT = 2-5 cells (100X) (0-1/hpf); Platelet Morphology Comment Appears Decreased; Reflex for Review?? NO; Spherocytes SLIGHT = 1-5 cells (100X) (None Seen)
[2019-06-27 10:35] LABS: ALT (SGPT) 10 U/L (8-55); AST (SGOT) 16 U/L (5-34); Albumin 3.3 g/dL (3.4-4.8); Alkaline Phosphatase 126 U/L (40-110); Anion Gap 17 mmol/L (10-20); BUN (Urea Nitrogen) 25 mg/dL (8.4-25.7); Calc. Creatinine Clearance 0 mL/min (70-130); Carbon Dioxide 17 mmol/L (23-31); Chloride 108 mmol/L (98-107); Estimated GFR-MDRD 45; Globulin 3.5 g/dL (2.4-3.5); Glucose 124 mg/dL (83-110); Lipase 6 U/L (8-78); Protein, Total 6.8 g/dL (5.8-8.1); Sodium 138 mmol/L (136-145)
[2019-06-27 10:40] LABS: INR-International Normal Ratio 1.5; Prothrombin Time 17.7 SEC (12.0-14.7)
[2019-06-27 10:41] LABS: PTT 59.5 SEC (22.9-36.1)
[2019-06-27] MEDS ORDERED: Sodium Chloride 0.9% 1,000 ML ONE (10:46)
[2019-06-27 10:58] LABS: CKMB 4.1 ng/mL (0-6.6)
--- NOTE | 2019-06-27 11:32 | RAD ---
XR Chest 1 View Portable History: Shortness of breath Comparison: Radiograph October 2018 Findings: Heart size is enlarged. Cephalization of pulmonary vasculature. Mild alveolar moderate inte rstitial edema. Trace effusions. No pneumothorax. Impression: Mild decompensated congestive heart failure..
--- NOTE | 2019-06-27 11:51 | CT ---
CT arteriogram chest with IV contrast and 3-D imaging HISTORY: Chest pain. Dyspnea. FINDINGS: There is good contrast opacification of the pulmonary arteries. Contrast has not reached th e aorta at the time of imaging. Calcification throughout the arterial structures including the coronary arteries. Moderate amount of bilateral pleural fluid with compressive atelectasis at each lung base. Motion art ifact obscures detail at the lung bases. At the left axilla, an enlarged lymph node measures up to 2.4 cm greatest length. Within the partiall y visualized upper abdomen, right renal cyst is partially visualized. Spleen measures at least 16.4 cm greatest length. There are degenerative changes of the thoracolumbar spine. IMPRESSION: No CT evidence of pulmonary embolus. Bilateral pleural effusions. Cause is not evident. Atherosclerosis. Enlarged left axillary lymph node. Cause is not evident. Moderate splenomegaly.
[2019-06-27] MEDS ORDERED: Furosemide 20 MG/2 ML VIAL ONE (12:58)
== END 2019-06-27 13:30 | disposition short-term general hospital (02) ==
LOC: NAV ERS 09:48
DX: I48.91 Unspecified atrial fibrillation (principal); I87.8 Other specified disorders of veins; L89.154 Pressure ulcer of sacral region, stage 4; E86.0 Dehydration; E78.5 Hyperlipidemia, unspecified; R79.89 Other specified abnormal findings of blood chemistry; D69.6 Thrombocytopenia, unspecified; I50.9 Heart failure, unspecified; Z87.891 Personal history of nicotine dependence
CPT/HCPCS: 71045; 71275; 80053; 82553; 83690; 83880; 84484; 85025; 85379; 85610; 85730; 86850; 86900; 86901; 93005; 96361; 96374; J1940; J7050; Q9967